=== PATIENT | male | born 2000 | race Caucasian/White ===

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

== ENCOUNTER 2019-07-09 22:40 | Emergency (ER) | payer OTHER ==
[2019-07-09 22:47] VITALS: BP 121/71; PULSE 77; TEMP 98.2; BMI 23.3
[2019-07-09] MEDS ORDERED: CLINDAMYCIN HCL 150 MG CAPSULE (FP) PO ONE (23:33)
[2019-07-09] MEDS ORDERED: CLINDAMYCIN HCL 150 MG CAPSULE (FP) ONE (23:35)
--- NOTE | 2019-07-09 23:38 | PDOC ---
*Physical Exam - Vital Signs Last Vital Signs Temp Pulse Resp BP Pulse Ox 98.2 F 77 18 121/71 100 07/09/19 22:44 07/09/19 22:44 07/09/19 22:44 07/09/19 22:44 07/09/19 22:44 Discharge - Discharge Information Problems reviewed: Yes - Follow up/Referral - Patient Discharge Instructions - Post Discharge Activity
--- NOTE | 2019-07-09 23:43 | PDOC ---
History of Present Illness - General Stated Complaint: BITES ON LEGS Time Seen by Provider: 07/09/19 23:14 History Source: Patient Exam Limitations: No Limitations Past History - Past Medical History Allergies/Adverse Reactions: Allergies Allergy/AdvReac Type Severity Reaction Status Date / Time Penicillins Allergy Verified 07/09/19 22:46 Home Medications: Ambulatory Orders Valacyclovir HCl [Valtrex -] 500 mg PO BID #6 tablet 06/20/18 Clindamycin [Cleocin -] 450 mg PO Q8H #87 capsule 07/09/19 Hydrocortisone 1% Cream [Hytone 1% Cream -] 1 applic TP BID #1 tube 07/09/19 COPD: No Psychiatric Problems: Yes (Bipolar) - Immunization History Immunization Up to Date: No - Psycho Social/Smoking Cessation Hx Smoking History: Never smoked Have you smoked in the past 12 months: No Information on smoking cessation initiated: No Hx Alcohol Use: No Drug/Substance Use Hx: No Substance Use Type: None *Physical Exam - Vital Signs Last Vital Signs Temp Pulse Resp BP Pulse Ox 98.2 F 77 18 121/71 100 07/09/19 22:44 07/09/19 22:44 07/09/19 22:44 07/09/19 22:44 07/09/19 22:44 - Physical Exam General Appearance: No: Apparent Distress Integumentary: positive: Rash (large area of erythamatous blanching rash along L calf, smaller area along R calf, no lesions, +warmth, no streaking, no open wound or drainage). negative: Mottled, Moist, Hives, Petechiae, Swelling, Ecchymosis, Bruising Neurologic: positive: Alert Medical Decision Making - Medical Decision Making 19 y/o M with hx of bipolar presents with itchy rash to B/L calves (L>R) which he noticed today. Mentions he was outside in the backyard last night, wearing shorts, and there were a bunch of flies around him (?mosquitoes). Denies recent travel, fever, sob, cp, abd pain, n/v. Took 1 Benadryl prior to coming. Contact dermatitis vs possible cellulitis Plan: Clindamycin (given allergy to penicillin), Benadryl prn, topical hydrocortisone 07/09/19 23:38 Discharge - Discharge Information Problems reviewed: Yes Clinical Impression/Diagnosis: Rash Condition: Stable Disposition: HOME - Admission No - Additional Discharge Information Prescriptions: Clindamycin [Cleocin -] 450 mg PO Q8H #87 capsule Hydrocortisone 1% Cream [Hytone 1% Cream -] 1 applic TP BID #1 tube Prescription Drug Monitoring Program (I-STOP) results: I-STOP not reviewed - Follow up/Referral - Patient Discharge Instructions Patient Printed Discharge Instructions: DI for Rash Additional Instructions: Thank you for choosing [facility]. It was a pleasure taking care of you. Take Benadryl as needed for itching Apply hydrocortisone cream twice a day Also take the antibiotics as prescribed in case there is overlying infection. Take with food; can also take probiotics along with them to avoid stomach upset. Follow-up with your doctor in 2 days Return to the Emergency Department if your symptoms worsen or persist, you have fever, worsening of rash, streaking or other concerning symptoms. - Post Discharge Activity
== END 2019-07-09 23:51 | disposition home or self-care (01) ==
LOC: JER 22:40
DX: R21 Rash and other nonspecific skin eruption (principal); F31.9 Bipolar disorder, unspecified; Z88.0 Allergy status to penicillin
CPT/HCPCS: 99281-25

== ENCOUNTER 2019-07-18 02:53 | Emergency (ER) | payer OTHER ==
--- NOTE | 2019-07-18 03:55 | PDOC ---
History of Present Illness - General Chief Complaint: Urinary Problem Stated Complaint: FREQUENT URINATION Time Seen by Provider: 07/18/19 03:55 - History of Present Illness Initial Comments: 19 year old male with PMH of bipolar (on abilify and use hydroxyzine for anxiety ) coming in for burning with urination. States that his friend's mother who he stays with had a pseudomonal UTI and he heard that it is contagious. He wants to get checked out and states that he is asymptomatic. Denies urinary symptoms, fevers, chills, nausea, vomiting, discharge, or any penile lesions. 07/18/19 04:24 Past History - Past Medical History Allergies/Adverse Reactions: Allergies Allergy/AdvReac Type Severity Reaction Status Date / Time Penicillins Allergy Verified 07/18/19 03:51 Home Medications: Ambulatory Orders Valacyclovir HCl [Valtrex -] 500 mg PO BID #6 tablet 06/20/18 Hydrocortisone 1% Cream [Hytone 1% Cream -] 1 applic TP BID #1 tube 07/09/19 COPD: No Psychiatric Problems: Yes (Bipolar) - Immunization History Immunization Up to Date: No - Psycho Social/Smoking Cessation Hx Smoking History: Never smoked Have you smoked in the past 12 months: No Hx Alcohol Use: No Drug/Substance Use Hx: No Substance Use Type: None Review of Systems - Review of Systems Constitutional: No: Chills, Diaphoresis, Fever, Loss of Appetite HEENTM: No: Blurred Vision, Tearing Respiratory: No: Cough, Orthopnea, Shortness of Breath Cardiac (ROS): No: Chest Pain, Edema, Irregular Heart Rate ABD/GI: No: Diarrhea, Nausea, Vomiting : No: Dysuria, Discharge, Frequency Musculoskeletal: No: Joint Pain, Joint Swelling Integumentary: No: Bruising, Change in Color Neurological: No: Headache, Numbness, Paresthesia Psychiatric: Yes: Anxiety, Depression Hematologic/Lymphatic: No: Anemia, Blood Clots *Physical Exam - Physical Exam General Appearance: Yes: Nourished, Appropriately Dressed. No: Apparent Distress HEENT: positive: EOMI, PHUONG, Normal ENT Inspection, Normal Voice Neck: positive: Trachea midline, Normal Thyroid, Supple. negative: Tender, Rigid Respiratory/Chest: positive: Lungs Clear, Normal Breath Sounds. negative: Chest Tender, Respiratory Distress, Accessory Muscle Use Cardiovascular: positive: Regular Rhythm, Regular Rate Gastrointestinal/Abdominal: positive: Normal Bowel Sounds, Flat, Soft. negative : Tender Musculoskeletal: positive: Normal Inspection. negative: Decreased Range of Motion Extremity: positive: Normal Capillary Refill, Normal Inspection, Normal Range of Motion. negative: Tender Integumentary: positive: Normal Color, Dry, Warm Neurologic: positive: Fully Oriented, Alert, Normal Mood/Affect, Normal Response Medical Decision Making - Medical Decision Making 19 year old male with concern because of housemate with UTI. Attempted to reassure patient that he could not have caught the UTI without intimate contact but insisted on UA. UA negative for infection. Will DC with return precautions and follow up instructions. 07/18/19 04:33 Discharge - Discharge Information Problems reviewed: Yes Clinical Impression/Diagnosis: Encounter for health-related screening Condition: Stable Disposition: HOME - Admission No - Follow up/Referral Referrals: Julieta Reyes [Primary Care Provider] - - Patient Discharge Instructions Patient Printed Discharge Instructions: DI for Urinary Tract Infection (UTI) Additional Instructions: You do not have an infection in your urine. Please follow up with your primary care doctor at your scheduled appointments. Please return to the ED if you have new or worsening symptoms. - Post Discharge Activity
[2019-07-18 03:58] VITALS: BP 137/76; PULSE 81; TEMP 97.5; BMI 29.2
[2019-07-18 04:56] LABS: PH,URINE 5.5 (5.0-8.0); URINE APPEARANCE CLEAR; URINE BILIRUBIN NEGATIVE (NEGATIVE); URINE COLOR YELLOW; URINE GLUCOSE (UA) NEGATIVE (NEGATIVE); URINE KETONE NEGATIVE (NEGATIVE); URINE LEUK ESTERASE NEGATIVE (NEGATIVE); URINE NITRITE NEGATIVE (NEGATIVE); URINE PROTEIN TRACE (NEGATIVE); URINE UROBILINOGEN 0.2 mg/dL (0.2-1.0)
--- NOTE | 2019-07-18 06:22 | PDOC ---
Attending Attestation - Resident Resident Name: Ananda Bright - ED Attending Attestation I have performed the following: I have examined & evaluated the patient, The case was reviewed & discussed with the resident, I agree w/resident's findings & plan, Exceptions are as noted - HPI HPI: 07/18/19 06:19 Mr. Arellano presents to the ER for assessment of dysuria Pt friend's mother has a history of obstructing kidney stone and sepsis related to UTI Pt is using the same bathroom as her and is worried that she may be contagious No fevers or chills No penile lesions or discharge No flank pain - Physicial Exam PE: 07/18/19 06:22 GENERAL: The patient is in no acute distress. ENT: Ears normal, nares patent, oropharynx clear without exudates. Moist mucous membranes. NECK: Normal range of motion, supple LUNGS: Breath sounds equal, clear to auscultation bilaterally. No wheezes, and no crackles. HEART:Regular rate and rhythm, normal S1 and S2 without murmur, rub or gallop. ABDOMEN: Soft, nontender, normoactive bowel sounds. EXTREMITIES: Normal range of motion, no edema. NEUROLOGICAL: Cranial nerves II through XII grossly intact. Normal speech. No focal neurological deficits. SKIN: Warm, Dry, normal turgor, no rashes or lesions noted. - Medical Decision Making 07/18/19 06:22 Laboratory Tests 07/18/19 04:36 Urine Blood Negative Urine Nitrite Negative Ur Leukocyte Esterase Negative Will discharge to home Follow up with PMD
== END 2019-07-18 05:39 | disposition home or self-care (01) ==
LOC: JER 02:53
DX: Z11.8 Encounter for screening for other infectious and parasitic diseases (principal); F31.9 Bipolar disorder, unspecified; Z88.0 Allergy status to penicillin
CPT/HCPCS: 81003; 99282-25

== ENCOUNTER 2019-08-15 01:51 | Emergency (ER) | payer OTHER ==
[2019-08-15 02:51] VITALS: BP 121/64; PULSE 102; TEMP 99.1; BMI 24.1
--- NOTE | 2019-08-15 03:23 | PDOC ---
History of Present Illness - General Chief Complaint: Cold Symptoms Stated Complaint: COUGH,FEVER Time Seen by Provider: 08/15/19 02:41 - History of Present Illness Initial Comments: Mr. Arellano is a 19 y/o male with no significant PMH presenting today with 3 days of fever, productive cough (yellow sputum), vomiting/wretching, and sore throat. Has not tried any medications at home. No recent travel. No sick contacts. Past History - Past Medical History Allergies/Adverse Reactions: Allergies Allergy/AdvReac Type Severity Reaction Status Date / Time Penicillins Allergy Verified 08/15/19 02:50 Home Medications: Ambulatory Orders Valacyclovir HCl [Valtrex -] 500 mg PO BID #6 tablet 06/20/18 Hydrocortisone 1% Cream [Hytone 1% Cream -] 1 applic TP BID #1 tube 07/09/19 COPD: No Psychiatric Problems: Yes (Bipolar) - Immunization History Immunization Up to Date: No - Psycho Social/Smoking Cessation Hx Smoking History: Never smoked Have you smoked in the past 12 months: No Hx Alcohol Use: No Drug/Substance Use Hx: No Substance Use Type: None Review of Systems - Review of Systems Comments:: GENERAL/CONSTITUTIONAL: Reports fever. No chills. No weakness. HEAD, EYES, EARS, NOSE AND THROAT: No change in vision. No change in hearing. Reports sore throat. CARDIOVASCULAR: No chest pain or shortness of breath_ RESPIRATORY: Reports productive cough. No hemoptysis_ GASTROINTESTINAL: Reports nausea and vomiting. No diarrhea or constipation._ GENITOURINARY: No dysuria, frequency, or change in urination._ MUSCULOSKELETAL: No joint or muscle swelling or pain. No neck or back pain._ SKIN: No rash_ NEUROLOGIC: No headache, vertigo, loss of consciousness, or change in strength/ sensation._ ENDOCRINE: No increased thirst. No abnormal weight change_ HEMATOLOGIC/LYMPHATIC: No anemia, easy bleeding, or history of blood clots._ ALLERGIC/IMMUNOLOGIC: No hives or skin allergy._ *Physical Exam - Vital Signs Last Vital Signs Temp Pulse Resp BP Pulse Ox 99.1 F 102 H 18 121/64 99 08/15/19 02:43 08/15/19 02:43 08/15/19 02:43 08/15/19 02:43 08/15/19 02:43 - Physical Exam Comments: GENERAL: Awake, alert, and oriented to person/place/time, in no acute distress_ HEAD: No signs of trauma, normocephalic, atraumatic _ EYES: PERRLA, EOMI, sclera anicteric, conjunctiva clear_ ENT: Hearing grossly normal, nares patent. Tonsils swollen without exudate bilaterally. No uvular deviation. Moist mucosa. TMs non-erythematous, non- bulging bilaterally. NECK: Normal ROM, supple, no lymphadenopathy, JVD, or masses_ LUNGS: No distress, speaks in full sentences, clear to auscultation bilaterally _ HEART: Regular rate and rhythm, normal S1 and S2, no murmurs appreciated, peripheral pulses normal and equal bilaterally._ ABDOMEN: Soft, nontender, normoactive bowel sounds. No guarding, no rebound. No masses_ EXTREMITIES: Normal inspection, Normal range of motion, no edema. No clubbing or cyanosis_ NEUROLOGICAL: Cranial nerves II through XII grossly intact. Normal speech, normal gait, no focal sensorimotor deficits _ SKIN: Warm, Dry, normal turgor, no rashes or lesions noted_ Medical Decision Making - Medical Decision Making 19M with no significant PMH presenting with fever, cough, sore throat for the past few days. -rapid strep -flu swab -CXR r/o pna 08/15/19 04:20 Rapid strep negative. Flu negative. CXR does not appear to show signs of pneumonia. Plan to d/c home, f/u PCP. Discharge - Discharge Information Problems reviewed: Yes Clinical Impression/Diagnosis: Cough Condition: Stable Disposition: HOME - Admission No - Follow up/Referral Referrals: Ross Contreras MD [Staff Physician] - - Patient Discharge Instructions Patient Printed Discharge Instructions: DI for Common Cold Additional Instructions: Please take Tylenol as needed for fever control (follow instructions on the package) and over the counter cough medications as needed for cough suppression. Please make a follow up appointment with your primary care physician (referral provided here). If you experience any new, worsening, or concerning symptoms, please return to the emergency room. - Post Discharge Activity
[2019-08-15] MEDS ORDERED: ACETAMINOPHEN 500 MG TABLET (FP) PO ONE (03:27)
[2019-08-15] MEDS ORDERED: ACETAMINOPHEN 325 MG TABLET (FP) ONE (03:29)
--- NOTE | 2019-08-15 04:25 | PDOC ---
Attending Attestation - Resident Resident Name: Paras Bradford - ED Attending Attestation I have performed the following: I have examined & evaluated the patient, The case was reviewed & discussed with the resident, I agree w/resident's findings & plan, Exceptions are as noted - HPI HPI: 08/15/19 04:24 19-year-old male with frequent visits for various complaints here today complaining of cough sore throat nasal congestion and generalized body aches. Patient denies any fever chills cough is productive of phlegm no change in stool no recent travel no sick contacts - Physicial Exam PE: 08/15/19 04:24 Awake alert no acute distress lungs are clear bilaterally heart is regular with any murmurs rubs or gallops throat is without exudates abdomen is soft nontender extremities are warm and well-perfused psych patient has an odd affect appears to be anxious but is calm and cooperative - Medical Decision Making 08/15/19 04:24 19-year-old male here with cough sore throat and congestion likely viral URI will obtain chest x-ray to rule out pneumonia Chest x-ray is negative for any acute infiltrate likely viral URI will DC home follow-up PCP
== END 2019-08-15 04:28 | disposition home or self-care (01) ==
LOC: JER 01:51
DX: J06.9 Acute upper respiratory infection, unspecified (principal); B97.89 Other viral agents as the cause of diseases classified elsewhere; Z88.0 Allergy status to penicillin
CPT/HCPCS: 71046-TC-FY; 87070; 87804; 87880; 99281-25

== ENCOUNTER 2022-02-11 00:29 | Emergency (ER) | payer OTHER ==
[2022-02-11] MEDS ORDERED: ACETAMINOPHEN 1000 MG/100 ML BAG IVPB ONE (00:52)
[2022-02-11] MEDS ORDERED: KETOROLAC TROMETHAMINE 15 MG/ML VIAL IVPUSH ONE (00:52)
[2022-02-11] MEDS ORDERED: LIDOCAINE 5% TOPICAL PATCH TP ONE (00:52)
[2022-02-11] MEDS ORDERED: SODIUM CHLORIDE 0.9% 500 ML INFUS.BAG IV ONE (00:52)
[2022-02-11 01:24] LABS: PH,URINE 7.5 (5.0-8.0); URINE APPEARANCE CLEAR; URINE BILIRUBIN NEGATIVE (NEGATIVE); URINE COLOR YELLOW; URINE GLUCOSE (UA) NEGATIVE (NEGATIVE); URINE KETONE NEGATIVE (NEGATIVE); URINE LEUK ESTERASE NEGATIVE (NEGATIVE); URINE NITRITE NEGATIVE (NEGATIVE); URINE PROTEIN NEGATIVE (NEGATIVE); URINE UROBILINOGEN 0.2 mg/dL (0.2-1.0)
[2022-02-11] MEDS ORDERED: ACETAMINOPHEN INJECTION 100 ML IVPB ONE (01:29)
[2022-02-11] MEDS ORDERED: LIDOCAINE 5% TOPICAL PATCH ONE (01:29)
[2022-02-11] MEDS ORDERED: KETOROLAC TROMETHAMINE 15 MG/ML VIAL ONE (01:29)
[2022-02-11 01:31] LABS: MCH 28.8 pg (25.7-33.7); MCHC 34.2 g/dl (32.0-35.9); MEAN CELL VOLUME 84.3 fl (80-96); MEAN PLT VOLUME 8.3 fl (7.5-11.1); PLATELET COUNT 176 10^3/uL (134-434); RBC 4.87 M/mm3 (4.00-5.60); RDW 12.9 % (11.9-15.9); WHITE BLOOD COUNT 6.7 K/mm3 (4.0-10.0)
[2022-02-11 01:33] VITALS: BMI 23.3
[2022-02-11 01:58] LABS: CALCIUM 8.9 mg/dL (8.5-10.1)
[2022-02-11 01:59] LABS: ALBUMIN 4.3 g/dl (3.4-5.0); BLOOD UREA NITROGEN 9.6 mg/dL (7-18); MAGNESIUM 2.1 mg/dL (1.8-2.4)
[2022-02-11 02:02] LABS: CREATININE 0.9 mg/dL (0.55-1.3)
[2022-02-11 02:03] LABS: BILIRUBIN,TOTAL 0.4 mg/dL (0.2-1); TOT PROT 7.2 g/dl (6.4-8.2)
[2022-02-11] MEDS ORDERED: LACTATED RINGERS SOLUTION 1000 ML INFUS.BAG IV ONE (02:33)
[2022-02-11] MEDS ORDERED: LORazepam 2 MG TABLET PO ONE (03:12)
[2022-02-11] MEDS ORDERED: LORazepam 1 MG TABLET ONE (03:26)
[2022-02-11] MEDS ORDERED: IBUPROFEN 600 MG TABLET (FP) PO ONE ×2 (04:45→05:06)
[2022-02-11 05:37] VITALS: BP 126/62; PULSE 96; TEMP 98.2
[2022-02-11] MEDS ORDERED: LIDOCAINE PATCH REMOVAL MC SCH (22:00)
[2022-02-13 00:06] LABS: SARS-CoV-2 NAA Detected (Not Detected)
== END 2022-02-11 05:37 | disposition home or self-care (01) ==
LOC: JER 00:29
PROC: 3E0333Z Introduction of Anti-inflammatory into Peripheral Vein, Percutaneous Approach (ICD-10-PCS; principal; 2022-02-11)
PROC: 3E0333Z Introduction of Anti-inflammatory into Peripheral Vein, Percutaneous Approach (ICD-10-PCS; 2022-02-11)
DX: U07.1 COVID-19 (principal)
CPT/HCPCS: 36415; 80053; 81003; 83735; 84100; 85027; 86308; 87651; 87804; 93005; 93010; 99285-25; C9803-CS; U0003; U0005